=== PATIENT | male | born 1970 | race Caucasian/White ===

== ENCOUNTER → 2017-01-02 | Outpatient (REF) | payer BC ==
[2017-01-02 19:15] LABS: BASO # 0.1 K/mm3 (0.0-0.2); BASO % 1.5 % (0.0-1.0); EOS # 0.4 K/mm3 (0.0-0.50); EOS % 6.9 % (0.0-3.0); LARGE UNSTAINED CELL # 0.1 K/mm3 (0.0-0.4); LARGE UNSTAINED CELL % 1.7 % (0.0-4.0); LYMPH # 1.9 K/mm3 (1.5-4.5); LYMPH % 33.9 % (24.0-44.0); MEAN CORPUSCULAR HEMOGLOBIN 30.2 pg (27.0-33.0); MEAN CORPUSCULAR VOLUME 91.2 fl (80.0-96.0); MONO # 0.4 K/mm3 (0.0-0.8); MONO % 6.3 % (0.0-5.0); NEUTROPHILS # 2.8 K/mm3 (1.8-7.7); NEUTROPHILS % 49.7 % (36.0-66.0); PLATELET COUNT, AUTOMATED 191 k/mm3 (150-450); RED CELL DISTRIBUTION WIDTH 13.2 % (11.5-14.5); WHITE BLOOD COUNT 5.6 K/mm3 (4.0-10.0)
[2017-01-02 19:25] LABS: ALBUMIN/GLOBULIN RATIO 1.18 (1.00-1.93); ALKALINE PHOSPHATASE 64 U/L (45-117); ALT/SGPT 61 U/L (12-78); ANION GAP 5 MEQ/L (8-16); AST/SGOT 33 U/L (15-37); BILIRUBIN,TOTAL 0.8 MG/DL (0.2-1.0); BLOOD UREA NITROGEN 13 MG/DL (7-18); CARBON DIOXIDE LEVEL 32 MEQ/L (21-32); CHLORIDE LEVEL 106 MEQ/L (98-107); CHOLESTEROL LEVEL 219 MG/DL (<200); CREATININE FOR GFR 0.98 MG/DL (0.70-1.30); GLOMERULAR FILTRATION RATE > 60.0 (>60); GLUCOSE, FASTING 106 MG/DL (70-105); POTASSIUM SERUM 4.7 MEQ/L (3.5-5.1); SODIUM LEVEL 143 MEQ/L (136-145); TOTAL PROTEIN 7.4 GM/DL (6.4-8.2); TRIGLYCERIDES LEVEL 316 MG/DL (<150)
== END ==
LOC: M LABDRAW1 16:53
PROVIDERS: ATTEND Emergency Medicine
DX: R07.9 Chest pain, unspecified (principal); R73.01 Impaired fasting glucose

== ENCOUNTER 2017-07-22 06:49 | Emergency (ER) | payer BC ==
[~2017-07-22] VITALS: Ht 170.2 cm; Wt 93.0 kg
[2017-07-22] MEDS ORDERED: PAXI20TA29 PO (06:59)
[2017-07-22] MEDS ORDERED: KETOROLAC 60 MG/2 ML VIAL (J1885) IM ONE (08:45)
[2017-07-22] MEDS ORDERED: NAPR500T PO (09:10)
--- NOTE | 2017-07-22 09:14 | REP ---
LEFT FOOT SERIES: Four views of the left foot performed. There is no acute fracture or dislocation. There is mild inferior calcaneal spurring and mild to moderate posterior calcaneal spurring. There is mild narrowing at the first metatarsophalangeal joint. There is an accessory ossicle lateral to the cuboid. IMPRESSION: Mild degenerative changes. Signed by Edgar Vazquez MD 07/22/2017 01:00 P
[2017-07-22 09:22] VITALS: BP 147/89
== END 2017-07-22 09:27 | disposition home or self-care (01) ==
LOC: M ED 06:49
DX: M77.32 Calcaneal spur, left foot (principal); M72.2 Plantar fascial fibromatosis; Z72.0 Tobacco use
CPT/HCPCS: 73630; 96372; 99283; J1885

== ENCOUNTER → 2017-07-22 | Outpatient (REF) | payer BC ==
[~2017-07-22] MED LIST: NAPR500T PO; PAXI20TA29 PO
[2017-07-22 12:32] LABS: BASO # 0.1 10^3/uL (0.0-0.2); BASO % 0.9 % (0.0-1.0); EOS # 0.5 10^3/uL (0.0-0.50); EOS % 4.3 % (0.0-3.0); IMMATURE GRANULOCYTE % 0.9 % (0-0); LYMPH # 2.5 10^3/uL (1.5-4.5); LYMPH % 19.9 % (24.0-44.0); MEAN CORPUSCULAR HEMOGLOBIN 30.4 pg (27.0-33.0); MEAN CORPUSCULAR HGB CONC 34.5 g/dl (32.0-36.5); MONO # 0.9 10^3/uL (0.0-0.8); MONO % 6.8 % (0.0-5.0); NEUTROPHILS # 8.5 10^3/uL (1.8-7.7); NEUTROPHILS % 67.2 % (36.0-66.0); PLATELET COUNT, AUTOMATED 205 10^3/uL (150-450); RED CELL DISTRIBUTION WIDTH 13.4 % (11.5-14.5); WHITE BLOOD COUNT 12.6 10^3/uL (4.0-10.0)
[2017-07-22 14:21] LABS: ERYTHROCYTE SEDIMENTATION RATE 3 mm/hr (0-15)
== END ==
LOC: M LABDRAW1 10:33
PROVIDERS: ATTEND Emergency Medicine
DX: M79.672 Pain in left foot (principal)

== ENCOUNTER 2020-01-11 16:28 | Emergency (ER) | payer BC ==
[~2020-01-11] VITALS: Ht 170.2 cm; Wt 92.6 kg
[~2020-01-11 16:28] MED LIST changes: +NAPR-837 PO; -NAPR500T PO
[2020-01-11] MEDS ORDERED: DOXY100C37 PO (17:53)
--- NOTE | 2020-01-11 18:12 | REPVR ---
PROCEDURE INFORMATION: Exam: US Scrotum Exam date and time: 01/11/2020 5:43 PM Age: 49 years old Clinical indication: Scrotum pain; Prior surgery; Surgery date: 6+ months; Surgery type: Vasectomy 20 yrs ago; Additional info: Left scrotal pain TECHNIQUE: Imaging protocol: Real-time ultrasound of the scrotum and contents with color Doppler and image documentation. COMPARISON: No relevant prior studies available. FINDINGS: Right testicle: Normal. No mass. No torsion. Normal vascular flow. Left testicle: Normal. No mass. No torsion. Normal vascular flow. Epididymides: Small cystic structure in the right epididymis measuring 4 mm. Small cystic structure in the left epididymis measuring 4 mm. Ectasia of the vas deferens. Scrotum: Normal. IMPRESSION: Small bilateral epididymal cysts. Ectasia of the vas deferens, likely postsurgical. Electronically signed by: Florentin North On 01/11/2020 18:11:40 PM
--- NOTE | 2020-01-11 18:17 | REPVR ---
PROCEDURE INFORMATION: Exam: US Pelvis Limited, Male Exam date and time: 01/11/2020 5:43 PM Age: 49 years old Clinical indication: Pain; Other: Groin; Additional info: Left abdominal pain TECHNIQUE: Imaging protocol: Real-time pelvic ultrasound with image documentation. COMPARISON: No relevant prior studies available. FINDINGS: Right inguinal ring/canal is unremarkable. Left inguinal ring measures 1.0 x 0.9 x 1.3 cm. The left inguinal canal contains fat and is non reducible. No bowel visualized. IMPRESSION: Left: Left inguinal hernia containing fat and is non reducible. Right: Unremarkable. Electronically signed by: Florentin North On 01/11/2020 18:16:45 PM
--- NOTE | 2020-01-11 18:24 | REP ---
CHEST, TWO VIEWS: There is no evidence of acute infiltrate. No pleural effusion is seen. The heart is normal in size. The mediastinal silhouette is unremarkable. The visualized osseous structures are intact. IMPRESSION: No acute pulmonary disease. Electronically Signed by Edgar Vazquez MD 01/12/2020 11:54 A
[2020-01-11 18:27] VITALS: BP 137/89
== END 2020-01-11 18:30 | disposition home or self-care (01) ==
LOC: M ED 16:28
DX: K40.90 Unilateral inguinal hernia, without obstruction or gangrene, not specified as recurrent (principal); J18.9 Pneumonia, unspecified organism; N50.3 Cyst of epididymis; F33.9 Major depressive disorder, recurrent, unspecified; Z79.899 Other long term (current) drug therapy; F17.210 Nicotine dependence, cigarettes, uncomplicated

== ENCOUNTER → 2020-05-25 | Outpatient (REF) | payer BC ==
[~2020-05-25] MED LIST changes: +ATOR40TA75 PO; +DOXY100C37 PO; +WELLTAB38 PO
[2020-05-27 08:21] LABS: LDL DIRECT 118 mg/dL (0-99)
== END ==
LOC: M LAB REF 17:57
PROVIDERS: ATTEND Physician Assistant Medical
DX: Z13.220 Encounter for screening for lipoid disorders (principal)

== ENCOUNTER → 2020-08-23 | Outpatient (CLI) | payer BC ==
[~2020-08-23] MED LIST changes: +HYDR-3713 PO
== END ==
LOC: M LABSMTC 09:44
PROVIDERS: ATTEND Anesthesiology
DX: Z01.812 Encounter for preprocedural laboratory examination (principal); Z20.828 Contact with and (suspected) exposure to other viral communicable diseases

== ENCOUNTER 2020-08-28 12:13 | Day surgery (SDC) | payer BC ==
[~2020-08-28] VITALS: Ht 172.7 cm; Wt 91.2 kg
[~2020-08-28 12:13] MED LIST changes: -HYDR-3713 PO; +LIDOCAINE 1% MDV 20ML VIAL SQ PRN; +LIDOCAINE 2% 100MG/5ML SDV (FOR ANES.) As Ordered ONE; +LR 1,000 ML IV ONE; +MIDAZOLAM INJ 2MG/2ML VIAL (J2250 PER 1MG) As Ordered ONE; +ROCURONIUM BROMIDE 50 MG/5 ML VIAL As Ordered ONE; +dexameTHASONE 4 MG/ML 1ML VIAL (J1100 PER 1MG) As Ordered ONE; +fentaNYL 250 MCG/5 ML INJECTION (J3010) As Ordered ONE; +propofoL 200 MG/20 ML VIAL As Ordered ONE
[2020-08-28] MEDS ORDERED: BUPIVACAINE HCL 0.25% 30ML VIAL As Ordered ONE (14:52)
[2020-08-28] MEDS ORDERED: ONDANSETRON 4MG/2ML VIAL As Ordered ONE ×2 (14:55→18:21)
[2020-08-28] MEDS ORDERED: SUGAMMADEX SODIUM 500 MG/5 ML VIAL (BRIDION) As Ordered ONE (14:55)
[2020-08-28] MEDS ORDERED: ACETAMINOPHEN 1000MG 100ML IV BTL (OFIRMEV) (J0131 PER 10MG) As Ordered ONE (14:55)
[2020-08-28] MEDS ORDERED: GLYCOPYRROLATE INJ 0.2 MG/ML 2 ML VIAL As Ordered ONE (16:07)
[2020-08-28] MEDS ORDERED: KETOROLAC 60MG 2ML VIAL As Ordered ONE (16:28)
[2020-08-28] MEDS ORDERED: ROCURONIUM BROMIDE 50 MG/5 ML VIAL As Ordered ONE (17:33)
[2020-08-28] MEDS ORDERED: fentaNYL 100 MCG/2 ML INJECTION (J3010) As Ordered ONE (18:21)
[2020-08-28] MEDS ORDERED: HYDR-3713 PO (18:33)
[2020-08-28] MEDS ORDERED: NORCO, ANEXSIA 5/325MG TABLET (HYDROcodone/ACETAMINOPHEN) PO PRN (19:00)
[2020-08-28] MEDS ORDERED: ACETAMINOPHEN TAB 650MG DOSE (2X325MG) PO PRN (19:00)
[2020-08-28] MEDS ORDERED: ONDANSETRON 4MG/2ML VIAL IV PRN (19:00)
[2020-08-28] MEDS ORDERED: METOCLOPRAMIDE INJ 10MG/2ML VIAL (J2765 PER 1) IV PRN (19:00)
[2020-08-28] MEDS ORDERED: LR 1,000 ML IV SCH (19:00)
[2020-08-28] MEDS ORDERED: PERCOCET 5MG/325MG TAB PO PRN (19:00)
[2020-08-28] MEDS ORDERED: fentaNYL 100 MCG/2 ML INJECTION (J3010) IV PRN (19:00)
[2020-08-28 20:10] VITALS: BP 124/80
--- NOTE | 2020-09-01 14:58 | RO ---
OPERATIVE NOTE DATE OF OPERATION: 08/28/2020 PREOPERATIVE DIAGNOSIS: Ventral hernia. POSTOPERATIVE DIAGNOSIS: Ventral hernia. PROCEDURE: Robotic-assisted laparoscopic ventral hernia repair with mesh. The mesh utilized was a 9 cm round Parietex patch. This was reference code [id number] with lot #[id number]. SURGEON: Dr. Alvarez ANESTHESIA: General. INDICATIONS FOR PROCEDURE: Patient is a 49-year-old man who had noticed a small bulge above the umbilicus. His work involves heavy lifting, and with increased activity he has noticed some discomfort. Exam confirmed a small supraumbilical midline ventral hernia, and he is now for repair. OPERATIVE PROCEDURE: The patient was brought to the operating room and placed on the table in the supine position. He was placed under general endotracheal anesthesia. The patient's abdomen was prepped and draped in a sterile fashion. Thromboembolic deterrents (TEDs) and sequentials were utilized. Marcaine 0.25% was infiltrated at each of the trocar sites as needed. Initially a short left upper quadrant incision was made, and a Veress needle was inserted. After a positive hanging drop test, the abdomen was inflated with carbon dioxide gas. A 12 mm port was placed in the left upper quadrant. Initially examination showed normal-appearing liver. There was no omentum adherent to the anterior abdominal wall. There was abundant omental fat covering much of the bowel. Visualized portions of the stomach and bowel were normal. Patient was tilted to a slight Trendelenburg position to level the abdomen and was rolled slightly to the right. An 8 mm port was placed in the lateral abdomen at the level of the umbilicus, and a second 8 mm port was placed in the left lower quadrant. The [employer] patient cart was brought into position, and the endoscope port was docked. Targeting took place on the anterior abdomen wall just above the umbilicus. The additional robotic arms were docked. Cauterizing scissors and a fenestrated bipolar were inserted. I then moved to the control console to proceed with the operation. Gentle pressure was applied to the anterior abdominal wall by the anatomic pathology assistant, and it was clear that the hernia was just above the umbilicus. A preperitoneal flap was developed by incising the peritoneum to the left of the midline and elevating the peritoneum and preperitoneal fat away from the fascia. Hemostasis was ensured with the cautery. Just above the level of the umbilical dimple was a approximately 1.5-2 cm, very discrete, round hole containing some entrapped preperitoneal fat. The fat was reduced into the abdomen, and the dissection of the preperitoneal tissues was carried to the right an additional 3-4 cm. There were no additional fascial defects identified. A #1 Stratafix suture was inserted into the abdomen, and this was used to close the fascial defect in a transverse manner. A 9 cm round Parietex patch was selected. This was trimmed by the pipe organ technician to a 7 cm round patch and was inserted into the abdomen. This was slightly too wide for the available preperitoneal space, and I trimmed a small strip off opposing sides of the mesh to create a more oval patch approximately 7 cm in length and 6 cm in width. This nicely fit within the preperitoneal space. A 2-0 V-Loc absorbable suture was then used to suture the mesh along the midline of the abdomen to the anterior abdominal wall, and the entire periphery of the mesh was then sutured as well. This was done with the abdominal pressure reduced to 8-10 mm of mercury. The peritoneal flap was then closed with a running absorbable 2-0 V-Loc. When the peritoneal closure was completed, I attempted to place a suture in the 12 mm port site from within the abdomen, but the ports became dislodged because of the increased abdominal pressure. The robot was therefore undocked and withdrawn. The ports were used to deflate the abdomen, and the ports were removed. I returned to the patient's side. I was able to expose the fascia in the left upper quadrant 12 mm port site, and this was close with a 0 Vicryl suture. The skin incisions were all closed with buried 4-0 Vicryl and Steri-Strips. Light dressings were applied. The patient tolerated the procedure well without apparent complication. He was awakened in the operating room, extubated, and moved to the recovery room in stable condition.
== END 2020-08-28 20:10 | disposition home or self-care (01) ==
LOC: M SDC 12:13
PROVIDERS: ATTEND Surgery
DX: K43.9 Ventral hernia without obstruction or gangrene (principal); E78.00 Pure hypercholesterolemia, unspecified; F41.9 Anxiety disorder, unspecified; F32.9 Major depressive disorder, single episode, unspecified; F17.210 Nicotine dependence, cigarettes, uncomplicated; Z79.899 Other long term (current) drug therapy
CPT/HCPCS: 49652; C1781; J0131; J1100; J1885; J2250; J2405; J3010

== ENCOUNTER → 2021-09-17 | Outpatient (CLI) | payer BC ==
[~2021-09-17] MED LIST changes: +DOXY-443 PO; -DOXY100C37 PO; +HYDR-3713 PO; -LIDOCAINE 1% MDV 20ML VIAL SQ PRN; -LIDOCAINE 2% 100MG/5ML SDV (FOR ANES.) As Ordered ONE; -LR 1,000 ML IV ONE; -MIDAZOLAM INJ 2MG/2ML VIAL (J2250 PER 1MG) As Ordered ONE; -ROCURONIUM BROMIDE 50 MG/5 ML VIAL As Ordered ONE; -dexameTHASONE 4 MG/ML 1ML VIAL (J1100 PER 1MG) As Ordered ONE; -fentaNYL 250 MCG/5 ML INJECTION (J3010) As Ordered ONE; -propofoL 200 MG/20 ML VIAL As Ordered ONE
--- NOTE | 2021-09-17 14:12 | REP ---
INDICATION: COUGH AND WHEEZING COMPARISON: 01/11/2020 TECHNIQUE: PA and lateral. FINDINGS: The mediastinum and cardiac silhouette are normal. The lung mc are clear and without acute consolidation, effusion, or pneumothorax. The skeletal structures are intact and normal. IMPRESSION: No acute cardiopulmonary process. <Electronically signed by [place] Tong > 09/17/21 0601
[2021-09-17 17:22] LABS: C REACTIVE PROTEIN QUANTITATIV 1.27 MG/DL (0.00-0.30); URIC ACID 7.7 MG/DL (3.5-7.2)
== END ==
LOC: M WUC 13:19
PROVIDERS: ATTEND Internal Medicine
DX: R06.02 Shortness of breath (principal); M79.671 Pain in right foot

== ENCOUNTER → 2023-05-26 | Outpatient (CLI) | payer BC ==
[~2023-05-26] MED LIST changes: -PAXI20TA29 PO; +PAXI20TA30 PO
[2023-05-26 18:40] LABS: BASO # 0.1 10^3/uL (0.0-0.2); BASO % 0.9 % (0.0-1.0); EOS # 0.4 10^3/uL (0.0-0.5); HEMATOCRIT 49.6 % (42.0-52.0); HEMOGLOBIN 16.3 g/dl (13.5-17.5); LYMPH # 1.6 10^3/uL (1.5-5.0); LYMPH % 20.8 % (24.0-44.0); MEAN CORPUSCULAR HGB CONC 32.9 g/dl (32.0-36.5); MEAN CORPUSCULAR VOLUME 94.5 fl (80.0-96.0); MONO # 0.7 10^3/uL (0.0-0.8); MONO % 9.6 % (2.0-8.0); NEUTROPHILS # 4.8 10^3/uL (1.5-8.5); NEUTROPHILS % 63.3 % (36.0-66.0); PLATELET COUNT, AUTOMATED 223 10^3/uL (150-450); RED BLOOD COUNT 5.25 10^6/uL (4.30-6.10); WHITE BLOOD COUNT 7.6 10^3/uL (4.0-10.0)
[2023-05-26 18:46] LABS: ALBUMIN 4.1 G/DL (3.2-5.2); ALKALINE PHOSPHATASE 50 U/L (46-116); ALT/SGPT 10 U/L (7.0-40); AST/SGOT < 8 U/L (<34); BILIRUBIN,TOTAL 0.9 MG/DL (0.3-1.2); BLOOD UREA NITROGEN 13 MG/DL (9-23); CARBON DIOXIDE LEVEL 27 MMOL/L (20-31); CHLORIDE LEVEL 107 MMOL/L (98-107); CREATININE FOR GFR 0.85 MG/DL (0.70-1.30); GLOMERULAR FILTRATION RATE > 60.0 (>56); GLUCOSE, FASTING 83 MG/DL (60-100); POTASSIUM SERUM 4.4 MMOL/L (3.5-5.1); SODIUM LEVEL 142 MMOL/L (136-145); TOTAL PROTEIN 6.9 G/DL (5.7-8.2)
[2023-05-26 18:47] LABS: THYROID STIMULATING HORMONE 0.754 uIU/ML (0.55-4.78)
[2023-05-26 19:13] LABS: HIV 1&2 SCREEN NEGATIVE (NEGATIVE)
== END ==
LOC: M WUC 11:29
PROVIDERS: ATTEND Nurse Practitioner Adult Health
DX: R63.4 Abnormal weight loss (principal)

== ENCOUNTER → 2024-06-17 | Outpatient (REF) | payer OTHER ==
[~2024-06-17] MED LIST changes: +DOXY-323 PO; -DOXY-443 PO
[2024-06-20 15:52] LABS: ANA SCREEN, IFA NEGATIVE (NEGATIVE)
== END ==
LOC: M LAB REF 17:15
PROVIDERS: ATTEND Physician Assistant Medical
DX: R21 Rash and other nonspecific skin eruption (principal)